=== PATIENT | female | born 1980 | race Caucasian/White ===

== ENCOUNTER 2021-02-15 13:30 | Emergency (ER) | payer BC ==
[~2021-02-15] VITALS: Ht 165.1 cm; Wt 63.6 kg
[2021-02-15 14:26] LABS: EOSINOPHILS # (AUTO) 0.1 X10'3 (0-0.9); HEMOGLOBIN 15.9 g/dl (12.0-16.0); LYMPHOCYTES # (AUTO) 1.7 X10'3 (1.1-4.8); MONOCYTES # (AUTO) 0.4 X10'3 (0-0.9); NEUTROPHILS # (AUTO) 4.3 X10'3 (1.8-7.7)
[2021-02-15 14:28] LABS: BASOPHILS % (AUTO) 0.3 % (0-1); HEMATOCRIT 46.6 % (35.0-45.0); LYMPHOCYTES % (AUTO) 25.8 % (21-51); MEAN CORPUSCULAR HEMOGLOBIN 31.3 PG (27.0-31.0); MEAN CORPUSCULAR HGB CONC 34.2 g/dL (33.0-36.5); MEAN CORPUSCULAR VOLUME 91.6 FL (78-98); MEAN PLATELET VOLUME 7.9 FL (7.4-10.4); MONOCYTES % (AUTO) 6.8 % (2-12); NEUTROPHILS % (AUTO) 66.1 % (42-75); PLATELET COUNT 184 X10'3 (140-440); RED BLOOD COUNT 5.09 X10'6 (4.20-5.60); WHITE BLOOD COUNT 6.5 X10'3 (4.5-11.0)
[2021-02-15 14:37] LABS: ALANINE AMINOTRANSFERASE 19 U/L (12-78); ALBUMIN 4.5 G/DL (3.4-5.0); ALBUMIN/GLOBULIN RATIO 1.2 (1.1-1.5); ALKALINE PHOSPHATASE 59 IU/L (46-116); ANION GAP 10 (8-16); ASPARTATE AMINO TRANSFERASE 12 U/L (10-37); BILIRUBIN,TOTAL 0.3 MG/DL (0.1-1.0); BLOOD UREA NITROGEN 14 MG/DL (7-18); BUN/CREATININE RATIO 18.7 (6.6-38.0); CALCIUM 9.4 MG/DL (8.5-10.1); CHLORIDE 106 MMOL/L (99-107); CREATININE 0.75 MG/DL (0.40-0.90); GLUCOSE 80 MG/DL (70-104); POTASSIUM 3.6 MMOL/L (3.5-5.1); SODIUM 142 MMOL/L (135-145); TOTAL CARBON DIOXIDE 25.8 MMOL/L (24-32); TOTAL PROTEIN 8.2 G/DL (6.4-8.2); eGFR 86 ML/MIN
[2021-02-15] MEDS ORDERED: ketorolac trometh. 30mg/ml inj. IM ONE (16:25)
[2021-02-15 18:02] VITALS: BP 148/68
== END 2021-02-15 18:04 | disposition home or self-care (01) ==
LOC: ER 13:31
DX: R07.89 Other chest pain (principal); R00.0 Tachycardia, unspecified; F17.200 Nicotine dependence, unspecified, uncomplicated; Z91.040 Latex allergy status
CPT/HCPCS: 36415; 71045; 80053; 84484; 85025; 85379; 85610; 93005; 96372; 99285; J1885

== ENCOUNTER 2024-11-30 08:30 | Emergency (ER) | payer BC ==
[~2024-11-30] VITALS: Ht 165.1 cm; Wt 60.6 kg
[2024-11-30 08:34] VITALS: TEMP 97.5
[2024-11-30] MEDS: LIDOcaine 1% W/epiNEPHrine 1:100,000 20ml vial IJ ONE (09:10)
[2024-11-30] MEDS ORDERED: PERM60CR27 TOP (10:13)
[2024-11-30] MEDS ORDERED: SULF1TAB49 PO (10:13)
--- NOTE | 2024-11-30 10:14 | Physician Documentation ---
History of Present Illness ~ Chief Complaint: Abscess Stated Complaint: INFECTION UNDER ARM Time Seen by MD: 09:10 Primary Medical Doctor: Karon Source: patient Exam Limitations: no limitations HPI 44-year-old female with chief complaint painful lump under her left axilla which started about a week ago and has gotten progressively more painful as well as larger in size. She states that prior to the painful lump starting it was very itchy. 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 The itching is worse at night. The itching has been getting progressively worse since it started. Has never had an abscess before. No history of MRSA. No pre arrival treatment. No fever, chills, malaise. Tetanus Within 5 Years: Yes Medication Reconciliation Allergies: Coded Allergies: latex (Verified Allergy, Intermediate, rash, 11/30/24) povidone-iodine (Verified Allergy, Intermediate, rash, 11/30/24) Uncoded Allergies: LOBSTER (Allergy, Unknown, 02/15/21) states no reaction to crab or shrimp Past Medical History Past Medical History: *CARDIOVASCULAR* Last Menstrual Period: Dec 09, 2023 Smoking Status: Light Tobacco User Lives In: Home Review of Systems All Other Systems at this time: Reviewed and Negative Physical Exam Vital Signs: Temperature: 97.5, Source: Temporal, Heart Rate: 90, Respiratory Rate: 18, BP: 114/67, Pulse Oximetry: 98, Weight: 60.600 Oxygen Flow Rate: 0 Physical Exam General Appearance: Alert, WD/WN. NAD. HEENT: NCAT, PERRL, EOMI. Neck: Supple, trachea midline. No cervical lymphadenopathy. Cardiovascular: RRR. No m/r/g. Lungs: CTAB. Breathing unlabored Extremities: Left axilla indurated erythematous area measuring about three to 4 cm in diameter, no fluctuance, area is tender to palpation. Surrounding axillary lymphadenopathy. Skin: Erythematous papular lesions in a wavy line left and right groin. Neurological: Alert and oriented x4, normal gait. Psychiatric: Affect congruent with mood. Procedures I & D Procedure : Site: Left axilla Anesthesia: Lidocaine w/ Epi Volume Anesthetic (mls): 2 Blade Size: 11 Prep/Supplies: packing placed Incision: pus drained, blood drained Tolerated Procedure Well?: yes, no complications Progress Results/Orders Reviewed/noted all lab results: Yes Results/Orders Orders - KARON CABALLERO Cult (Aer) Routine C&S+Gram St (11/30/24 09:10) Laceration/I&D Tray Set Up (11/30/24 09:10) Completed Orders - KARON CABALLERO Lidocaine 1% W/Epi 1:100,000 (Xylocaine (11/30/24 09:10) Vital Signs 11/30/24 08:34 Temp 97.5 Pulse 90 Resp 18 B/P (MAP) 114/67 Pulse Ox 98 O2 Flow Rate 0 Medical Decision Making Differential Dx:Considerations: Include: Abscess, Bacteremia, Cellulitis, Erysipelas, Felon, Gas gangrene, Hidrademitis suppurativa, Impetigo, Lymphangitis, Osteromyelitis, Paronychia, Septicemia, Other Additional Comment I suspect that patient has scabies in the excessive itching at her left axilla is what precipitated this abscess. Departure Time of Disposition: 10:14 Disposition: 01 HOME / SELF CARE / HOMELESS Impression: Primary Impression: Abscess Additional Impression: Scabies Condition: Stable Discharge Instructions: Abscess, Care After, Scabies, Adult Additional Instructions: ANTIBIOTIC AND PERMETHERIN DISCUSSED WASH ALL CLOTHING AND BEDDING IF WORSENING OF SYMPTOMS, RETURN TO THE ER REMOVE PACKING IN 48HOURS Departure Forms: Excuse form Work or School Excused From: Work Excuse beginning now through the following date: Dec 01, 2024 May Return but still avoid physical Activity from now until: Dec 02, 2024 Referrals: NO PRIMARY CARE PROVIDER (PCP) Prescriptions Sulfamethoxazole/Trimethoprim (Bactrim Ds Tablet) 800 Mg-160 Mg Tablet 1 TAB PO Q12H for 10 Days, #20 TAB Prov: KARON CABALLERO 11/30/24 Permethrin 5% Cream* (Elimite 5% Cream*) 60 Gm Cream.gm. 1 APPLIC TOP ONCE, #60 GM massage into skin from head to soles of feet one time, leave on for 8-14 hours then remove by thorough washing repeat in 7days. Prov: KARON CABALLERO 11/30/24 Education Educated: Patient Educated regarding: diagnosis, treatment, need for follow up Signature Scribe Signature: X Attestation: KARON VILLAREAL Nov 30, 2024 10:14
[2024-11-30 10:39] VITALS: BP 114/72; PULSE 62; RESP 16; O2SAT 98
== END 2024-11-30 10:36 | disposition home or self-care (01) ==
LOC: ER 08:30
DX: L02.412 Cutaneous abscess of left axilla (principal); B86 Scabies; Z72.0 Tobacco use; Z88.8 Allergy status to other drugs, medicaments and biological substances; Z91.040 Latex allergy status
CPT/HCPCS: 10060; 87070; 87077; 87186; 99283; A6407